=== PATIENT | male | born 2000 | race Caucasian/White ===

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

== ENCOUNTER 2021-12-20 09:22 | Emergency (ER) | payer OTHER, SELFPAY ==
[2021-12-20 09:24] VITALS: BP 137/94; PULSE 83; RESP 16; TEMP 36.2; O2SAT 95; BMI 26.9
--- NOTE | 2021-12-20 09:45 | EX.ED.DYSGE1 ---
HPI <CHANEL Bang - Last Filed: 12/20/21 10:32> History of Present Illness Chief Complaint: Complaint Narrative Narrative: 21-year-old male with no significant history presents the emergency part with 2 days of painful with urination. Patient states the pain is particular at the tip of his penis, he states that the pain is worse with the strain, and then hurts several minutes after urinating. Patient denies being sexually active, patient denies any drainage from his penis. Patient denies any lesions, any fever or chills. Patient denies any testicular pain. Denies any sexual situation causing penis discomfort. PFSH <CHANEL Bang - Last Filed: 12/20/21 10:32> PFSH Medical History no medical history Home Medications naproxen 500 mg PO BID PRN #20 tab 03/27/18 [Rx Last Taken Unknown] clotrimazole 1 applic TOPICAL BID 14 Days #15 g 12/20/21 [Rx Last Taken Unknown] fexofenadine-pseudoephedrine [Sun-D 24 Hour] 1 tab PO DAILY 12/20/21 [History Last Taken Unknown] Allergy/AdvReac Type Severity Reaction Status Date / Time pollen extracts Allergy Other Verified 12/20/21 09:22 Social History Smoking Status: Never smoker ROS <CHANEL Bang - Last Filed: 12/20/21 10:32> ROS ED ROS Narrative Constitutional: Negative for fever, chills, weight loss, weakness Eyes: Negative for vision loss, vision change, double vision ENT: Negative for any sore throat, ear pain, congestion Cardiovascular: Negative for any chest pain, tightness, palpitations Respiratory: Negative for any cough, sputum production, hemoptysis, dyspnea, dyspnea on exertion, orthopnea Gastrointestinal: Negative for any abdominal pain, nausea, vomiting, diarrhea, constipation, blood in stool, blood in vomit : Negative for any urinary frequency, retention, blood in urine. Positive for dysuria Muscle skeletal: Negative for any muscle joint pain, stiffness, myalgias, arthralgias, neck pain, back pain Neurological: Negative for any headache, syncope, numbness or tingling, dizziness Skin: Negative for any rashes, lumps, itching, abrasions, lacerations Psychiatric: Negative for any depression, anxiety, stress, suicidal ideation, homicidal ideation Hematologic: Negative for any easy bruising, excessive bruising, easy bleeding Allergies: Negative for any eczema, hives, rash EXAM <CHANEL Bang - Last Filed: 12/20/21 10:32> Physical Exam Narrative Exam Narrative: Vital signs reviewed. HEET: Head normocephalic atraumatic, TMs clear bilaterally. Posterior pharynx is clear, moist mucous membranes. Nares clear bilaterally. Neck: Supple with no lymphadenopathy or tenderness. No signs of meningismus, negative jolt sign. Cardiac: Regular rate and rhythm no murmurs gallops or rubs, equal peripheral pulses bilaterally. Respiratory: Lungs clear to auscultation bilaterally. No chest tenderness. Abdomen: Soft, nontender, nondistended. No abdominal bruit or pulsatile masses. No hepatosplenomegaly Extremities: No peripheral edema, no signs of gross trauma or deformity. Active full range of motion of all extremities. Neuro: Cranial nerves II through XII intact, no focal neurological deficits. Skin: Clean dry and intact with no rash, purpura, petechiae, vesicles or pustules. Backs/flank: No CVA tenderness, no midline spinal tenderness, no deformity. Psych: Normal mood and affect. No SI, HI or acute psychosis. : Exam was completed, there were no lesions, no testicular pain. Negative for any drainage. Patient does have pain to the tip of the penis Const Vital Signs: 12/20/21 09:24 Temperature 97.1 F L Temperature Source Temporal Pulse Rate 83 Respiratory Rate 16 Blood Pressure 137/94 H Blood Pressure Mean 108 Pulse Ox 95 Oxygen Delivery Method Room Air Positive well nourished and well developed General Appearance ED: well developed <Dr. Diaz Worrell DO - Last Filed: 12/20/21 10:34> Physical Exam Const Vital Signs: 12/20/21 09:24 Temperature 97.1 F L Temperature Source Temporal Pulse Rate 83 Respiratory Rate 16 Blood Pressure 137/94 H Blood Pressure Mean 108 Pulse Ox 95 Oxygen Delivery Method Room Air MDM <CHANEL Bang - Last Filed: 12/20/21 10:32> [facility] Narrative Medical decision making narrative: Patient appears well, patient appears nontoxic, vital signs are stable. At this time, there is no indication of any lesions. Patient's urinalysis was negative for any infection any blood. No evidence of any STD. Patient be treated for balanitis patient replaced on clotrimazole, and follow-up with his PCP. He is instructed to wear tight underwear to decrease any chafing. He is instructed to return for any worsening pain, fever chills nausea or vomiting. Patient verbally understands the importance of follow-up. Stable for discharge. Lab Data Attestation: I reviewed the patient's lab results. Labs: Laboratory Results - last 24 hr 12/20/21 09:45 Urine Color Yellow Urine Clarity Clear Urine pH 6.0 Ur Specific [place] 1.025 Urine Protein Negative Urine Glucose (UA) Normal Urine Ketones Negative Urine Occult Blood Negative Urine Nitrite Negative Urine Bilirubin Negative Urine Urobilinogen Normal Ur Leukocyte Esterase Negative Urine RBC 0 SEEN Urine WBC 0 SEEN Ur Squamous Epith Cells 0 SEEN Urine Bacteria 0 SEEN Urine Mucus 0 SEEN <Dr. Diaz Worrell DO - Last Filed: 12/20/21 10:34> [facility] MDM Narrative Medical decision making narrative: I performed a history and physical examination of the patient and discussed management plan with the physician preschool assistant director. I reviewed the physician preschool assistant director's note and agree with the documented findings and plan of care. Physical exam shows some tender erythematous tissue circumferential around the urethral meatus. Most likely balanitis. Will treat with clotrimazole. Diaz Worrell DO, MS Lab Data Labs: Laboratory Results - last 24 hr 12/20/21 09:45 Urine Color Yellow Urine Clarity Clear Urine pH 6.0 Ur Specific [place] 1.025 Urine Protein Negative Urine Glucose (UA) Normal Urine Ketones Negative Urine Occult Blood Negative Urine Nitrite Negative Urine Bilirubin Negative Urine Urobilinogen Normal Ur Leukocyte Esterase Negative Urine RBC 0 SEEN Urine WBC 0 SEEN Ur Squamous Epith Cells 0 SEEN Urine Bacteria 0 SEEN Urine Mucus 0 SEEN Discharge Plan Triage Chief Complaint: Complaint ED Midlevel Provider: Enrique Solis ED Provider: Diaz Worrell Dx/Rx/DC Orders Clinical Impression: Balanitis Instructions: ED Balanitis Prescriptions: New clotrimazole 1 % cream 1 applic topical BID 14 Days Qty: 15 RF: 0 No Action naproxen 500 MG tablet 500 mg PO BID PRN Qty: 20 RF: 0 fexofenadine-pseudoephedrine [Sun-D 24 Hour] 180-240 mg Tablet Extended Release 24 Hr 1 tab PO DAILY RF: 0 Primary Care Provider: Care Physician,No Primary Referrals: Care Physician,No Primary [Primary Care Provider] - Activity Restrictions/Additional Instructions: You are being treated for a fungal like infection, please apply the cream twice a day for 2 weeks. Please wear tight underwear to decrease any chafing. Please return here for any worsening symptoms. Print Language: Tajik Disposition Disposition: Home, Self Care
[2021-12-20 10:02] LABS: Bacteria 0 SEEN /hpf (None Seen); Mucous, Urine 0 SEEN /hpf (<or=2+); Red Blood Cells-Urine 0 SEEN /hpf (0-5); Squamous Epithelial Cells - UA 0 SEEN /hpf (0-5); White Blood Cells 0 SEEN /hpf (0-5)
[2021-12-20 10:03] LABS: Color, Urine Yellow (Yellow); Glucose, Dipstick Normal (Normal); Ketone-Dipstick Negative (Negative); Leukocyte Esterase-Dipstick Negative /ul (Negative); Nitrite-Dipstick Negative (Negative); Occult Blood-Urine Negative /ul (Negative); Protein-Dipstick Negative (Negative); Specific Gravity, Urine 1.025 (1.002-1.030); Urine Bilirubin Dipstick Negative (Negative); Urine Clarity Clear (Clear); Urine Urobilinogen Normal (Normal)
== END 2021-12-20 10:40 | disposition home or self-care (01) ==
PROVIDERS: Nurse Practitioner; Emergency Provider Emergency Medicine; Visit Provider Emergency Medicine
DX: N48.1 Balanitis (principal)
CPT/HCPCS: 81001; 99282

== ENCOUNTER → 2022-05-16 | Outpatient (CLI) | payer OTHER, SELFPAY ==
--- NOTE | 2022-05-16 08:48 | MRI_ITS ---
STUDY: MRI LEFT KNEE REASON FOR EXAM: Male, 21 years old. Volleyball injury, knee injury, knee pain. TECHNIQUE: Standardized fat and water weighted pulse sequences were obtained in all 3 orthogonal planes. COMPARISON: None. FINDINGS: Normal medial meniscus. Normal hyaline cartilage of the medial femorotibial compartment. Small mild contusion of the medial aspect of the medial femoral condyle and mild contusion of the posterior medial tibial plateau. Grade 2 tear/sprain of the medial collateral ligament. Normal distal semimembranosus, gracilis and semitendinosus tendons. Normal lateral meniscus. Normal hyaline cartilage of the lateral femorotibial compartment. Mild contusions of the anterior lateral femoral condyle and posterior lateral tibial plateau consistent with recent pivot shift injury. Normal proximal tibiofibular articulation. There is a partial sprain of the lateral collateral (fibular) ligament. Normal popliteus tendon. Normal biceps femoris tendon. Acute anterior cruciate ligament transection (ACL tear). Normal posterior cruciate ligament (PCL). Normal congruent patellofemoral articulation. Normal hyaline cartilage of the patellofemoral compartment. Normal medial and lateral patellar retinaculum. Normal quadriceps tendon. Normal patellar tendon. Normal Hoffa''s fat pad. There is a small volume joint effusion. The soft tissues are unremarkable. The otherwise visualized osseous structures are unremarkable. MRI/Lower Ext Joint Only (Routine) IMPRESSION: Recent pivot shift injury with anterior cruciate ligament transection (ACL tear), grade 2 medial collateral ligament tear/sprain, grade 1 lateral collateral ligament tear/sprain and small joint effusion. No meniscal tear. Electronically Signed: Baldemar Baldwin MD at 15:16 EDT ,
== END | disposition home or self-care (01) ==
LOC: MRI 08:39
PROVIDERS: Referring Provider Physician Assistant Surgical; Visit Provider Physician Assistant Surgical
DX: M25.462 Effusion, left knee (principal)
CPT/HCPCS: 73721